=== PATIENT | male | born 1940 | race Caucasian/White ===

== ENCOUNTER 2017-01-20 14:25 | Emergency (ER) | payer OTHER ==
[~2017-01-20] VITALS: Ht 170.2 cm; Wt 74.0 kg
[~2017-01-20 14:25] MED LIST: ASPI81TA82 PO; ATOR40TA PO; B-COTAB41 PO; CO Q100C9 PO; DYAZ37.52 PO; GLUCTAB6; METO25 PO; OMEP20TA39 PO; OXYC1SOL5 PO; POTA10TA48 PO
[2017-01-20 14:43] VITALS: BP 135/91; PULSE 136; RESP 18; TEMP 98.7; O2SAT 97
[2017-01-20] MEDS ORDERED: ATOR40TA16 PO (15:34)
[2017-01-20] MEDS ORDERED: ASPI1TAB69 PO (15:34)
[2017-01-20] MEDS ORDERED: DYAZ37.5 PO (15:34)
[2017-01-20] MEDS ORDERED: CO Q100C7 PO (15:34)
[2017-01-20] MEDS ORDERED: POTA10CA PO (15:34)
[2017-01-20] MEDS ORDERED: OMEP40CA2 PO (15:34)
[2017-01-20] MEDS ORDERED: METO25TA3 PO (15:34)
[2017-01-20] MEDS ORDERED: VITA1000 PO (15:34)
[2017-01-20] MEDS ORDERED: GLUC1CAP16 PO (15:34)
[2017-01-20] MEDS ORDERED: SODIUM CHLORIDE 0.9% FLUSH 5 ML FLUSH IVF PRN (15:45)
--- NOTE | 2017-01-20 15:50 | PD ---
HPI Chief Complaint: GI Complaint Time Seen by Provider: 15:37 Travel History International Travel<30 days: No Contact w/Intl Traveler<30days: No Traveled to known affect area: No History of Present Illness HPI This patient complains of abdominal pain. Location is left lower quadrant. Duration 3 days. Severity is moderate. He had a bowel movement today. No diarrhea or vomiting or fever. He arrives with tachycardia 130 but says he has a history of fast heart rate and takes metoprolol because of his fast heart rate. He denies history of cardiac problems beyond that. No alleviating factors. PFSH Past Medical History Cancer: Yes (SKIN) Cardiovascular Problems: No High Cholesterol: Yes Diabetes: No Diminished Hearing: No Endocrine: No Genitourinary: No Hepatitis: No Hiatal Hernia: No Hypertension: Yes Immune Disorder: No Medical other: Yes (GERD) Musculoskeletal: Yes (OA) Neurologic: No Psychiatric: No Reproductive: No Respiratory: No Thyroid Disease: No Influenza Vaccination: Yes ?: Not Past Surgical History AICD: No Genitourinary Surgery: Yes (BLADDER BIOPSY) Joint Replacement: No Oral Surgery: Yes (T&A) Pacemaker: No Other Surgery: Yes Social History Alcohol Use: Yes (COUPLE GLASSES OF WINE PER DAY) Tobacco Use: Yes (12 CIG. PER DAY) Substance Use: No Allergies-Medications (Allergen,Severity, Reaction): Coded Allergies: Penicillin (Verified Allergy, Mild, 01/20/17) Reported Meds & Prescriptions Reported Meds & Active Scripts Active Reported Glucosamine Chondroitin (Xwfnxsrueor-Cfdcxcvdcsz-Lgr C-) 1 Cap Cap 1 Cap PO DAILY Potassium Chloride ER (Potassium Chloride) 10 Meq Cap 10 Meq PO DAILY Dyazide (Triamterene-Hydrochlorothiazide) 37.5-25 Mg Cap 1 Cap PO DAILY Omeprazole 40 Mg Cap 40 Mg PO DAILY Co Q10 (Coenzyme Q10 (Ubidecarenone)) 100 Mg Cap 100 Mg PO DAILY Metoprolol Tartrate 25 Mg Tab 12.5 Mg PO BID Vitamin D-1000 (Cholecalciferol) 1,000 Unit Tab 2,000 Units PO DAILY Atorvastatin (Atorvastatin Calcium) 40 Mg Tab 40 Mg PO HS Aspirin 81 Mg Tabdr 81 Mg PO DAILY Review of Systems General / Constitutional: No: Fever Eyes: No: Visual changes HENT: No: Headaches Cardiovascular: Positive: Tachycardia, No: Chest Pain or Discomfort Respiratory: No: Shortness of Breath Gastrointestinal: Positive: Abdominal Pain Genitourinary: No: Dysuria Musculoskeletal: No: Pain Skin: No Rash Neurologic: No: Weakness Psychiatric: No: Depression Endocrine: No: Polydipsia Hematologic/Lymphatic: No: Easy Bruising Physical Exam Narrative GENERAL: Well-nourished, well-developed patient in no apparent distress. SKIN: Warm and dry. HEAD: Atraumatic. Normocephalic. EYES: Pupils equal and round. No scleral icterus. No injection or drainage. ENT: No nasal bleeding or discharge. Mucous membranes pink and moist. NECK: Trachea midline. No JVD. CARDIOVASCULAR: Regular rate and rhythm. No murmur appreciated. Heart rate 130 RESPIRATORY: No accessory muscle use. Clear to auscultation. Breath sounds equal bilaterally. GASTROINTESTINAL: Abdomen soft, some left lower quadrant tenderness without rebound or guarding, nondistended. Hepatic and splenic margins not palpable. MUSCULOSKELETAL: No obvious deformities. No clubbing. No cyanosis. No edema. NEUROLOGICAL: Awake and alert. No obvious cranial nerve deficits. Motor grossly within normal limits. Normal speech. PSYCHIATRIC: Appropriate mood and affect; insight and judgment normal. Data Data Last Documented VS Vital Signs Date Time Temp Pulse Resp B/P Pulse Ox O2 Delivery O2 Flow Rate FiO2 01/20/17 14:43 98.7 136 18 135/91 97 Orders Basic Metabolic Panel (Bmp) (01/20/17 15:43) Complete Blood Count With Diff (01/20/17 15:43) Urinalysis - C+S If Indicated (01/20/17 15:43) Ct Abd/Pel W Iv Contrast(Rout) (01/20/17 15:43) Iv Access Insert/Monitor (01/20/17 15:43) Ecg Monitoring (01/20/17 15:43) Oximetry (01/20/17 15:43) NPO (01/20/17 15:43) Sodium Chloride 0.9% Flush (Ns Flush) (01/20/17 15:45) Electrocardiogram (01/20/17 15:43) Prothrombin Time / Inr (Pt) (01/20/17 15:45) Act Partial Throm Time (Ptt) (01/20/17 15:45) Labs Laboratory Tests Test 01/20/17 01/20/17 15:54 15:56 White Blood Count 13.4 TH/MM3 Red Blood Count 5.45 MIL/MM3 Hemoglobin 17.1 GM/DL Hematocrit 49.7 % Mean Corpuscular Volume 91.0 FL Mean Corpuscular Hemoglobin 31.3 PG Mean Corpuscular Hemoglobin 34.4 % Concent Red Cell Distribution Width 12.2 % Platelet Count 262 TH/MM3 Mean Platelet Volume 7.8 FL Neutrophils (%) (Auto) 81.4 % Lymphocytes (%) (Auto) 8.5 % Monocytes (%) (Auto) 6.1 % Eosinophils (%) (Auto) 0.1 % Basophils (%) (Auto) 3.9 % Neutrophils # (Auto) 11.0 TH/MM3 Lymphocytes # (Auto) 1.1 TH/MM3 Monocytes # (Auto) 0.8 TH/MM3 Eosinophils # (Auto) 0.0 TH/MM3 Basophils # (Auto) 0.5 TH/MM3 CBC Comment AUTO DIFF Differential Total Cells 100 Counted Neutrophils % (Manual) 79 % Band Neutrophils % 11 % Lymphocytes % 5 % Monocytes % 5 % Neutrophils # (Manual) 12.1 TH/MM3 Differential Comment FINAL DIFF MANUAL Platelet Estimate NORMAL Platelet Morphology Comment NORMAL Red Cell Morphology Comment NORMAL Prothrombin Time 10.7 SEC Prothromb Time International 1.0 RATIO Ratio Activated Partial 26.4 SEC Thromboplast Time Sodium Level 139 MEQ/L Potassium Level 3.2 MEQ/L Chloride Level 103 MEQ/L Carbon Dioxide Level 24.3 MEQ/L Anion Gap 12 MEQ/L Blood Urea Nitrogen 16 MG/DL Creatinine 1.10 MG/DL Estimat Glomerular Filtration 65 ML/MIN Rate Random Glucose 164 MG/DL Calcium Level 9.4 MG/DL Urine Collection Type CLEAN CATCH Urine Color DANGELO Urine Turbidity SLIGHT Urine pH 5.5 Urine Specific Carman 1.029 Urine Protein 100 mg/dL Urine Glucose (UA) NEG mg/dL Urine Ketones TRACE mg/dL Urine Occult Blood MOD Urine Nitrite NEG Urine Bilirubin NEG Urine Leukocyte Esterase NEG Urine RBC 20-24 /hpf Urine WBC 0-2 /hpf Urine Squamous Epithelial 6-8 /hpf Cells Urine Transitional Epithelial 0-5 /hpf Cells Urine Amorphous Sediment MOD Urine Hyaline Casts 6-9 /lpf Microscopic Urinalysis Comment CULT NOT INDICATED Urine Collection Time 1556 MDM Medical Decision Making Medical Screen Exam Complete: Yes Emergency Medical Condition: Yes Medical Record Reviewed: Yes Differential Diagnosis Diverticulitis, A. fib with RVR, cardiac arrhythmia Narrative Course I have reviewed the patient's electronic medical record. Has not been here for abdominal pain before and no abdominal imaging on file. He was here August 2016 for right shoulder problems IV placed CBC shows minimal leukocytosis of 13,000 Metabolic profile shows minor hypokalemia 3.2 which is replaced orally Coagulation studies are normal I reviewed his EKG shows sinus tachycardia she apparently is his baseline per his report. He says he is always tachycardic. Extended cardiac monitoring shows sinus tachycardia without ectopy CT of abdomen and pelvis shows some colitis without perforation or abscess Patient this point is minimally symptomatic and stable for outpatient follow- up. Has benign abdominal exam I don't think he has C. difficile, he has no diarrhea. I prescribed him some antibiotics as well as medicine for pain and nausea and a single replacement of potassium Diagnosis Primary Impression: Colitis presumed infectious Additional Impression: Hypokalemia Additional Instructions: The patient was advised to follow up with their physician and return if they worsen. The patient was warned about potential sedation for the medications they will receive on prescription. Med/Other Pt SpecificInfo: Prescription(s) given Scripts Tramadol 50 Mg Tab50 Mg PO Q6H PRN (PAIN) #20 TAB Ref 0 Prov:Demetri Pineda MD 01/20/17 Ondansetron (Zofran)4 Mg Tab4 Mg PO Q6HR PRN (NAUSEA OR VOMITING) #12 TAB Ref 0 Prov:Demetri Pineda MD 01/20/17 Ciprofloxacin (Cipro)500 Mg Scq139 Mg PO BID #14 TAB Ref 0 Prov:Demetri Pineda MD 01/20/17 Metronidazole (Flagyl)500 Mg Uhp803 Mg PO QID #28 TAB Ref 0 Prov:Demetri Pineda MD 01/20/17 Disposition: 01 DISCHARGE HOME Condition: Stable Demetri Pineda MD Jan 20, 2017 15:50
[2017-01-20 16:06] LABS: GLUCOSE,URINE NEG (NEG); KETONE, URINE TRACE mg/dL (NEG); NITRITE,URINE NEG (NEG); PH, URINE 5.5 (5.0-8.5)
[2017-01-20 16:08] LABS: BASOPHIL # 0.5 TH/MM3 (0-0.2); BASOPHIL % 3.9 % (0.0-2.0); EOSINOPHIL % 0.1 % (0.0-4.0); HEMATOCRIT 49.7 % (39.0-51.0); HEMO FLAGS AUTO DIFF; LYMPH % 8.5 % (9.0-44.0); LYMPHOCYTE # 1.1 TH/MM3 (1.0-4.8); MEAN CORPUSCULAR HEMOGLOBIN 31.3 PG (27.0-34.0); MEAN CORPUSCULAR HGB CONC 34.4 % (32.0-36.0); MONO % 6.1 % (0.0-8.0); NEUT % 81.4 % (16.0-70.0); PLATELET COUNT 262 TH/MM3 (150-450); RED BLOOD COUNT 5.45 MIL/MM3 (4.50-5.90); RED CELL DISTRIBUTION WIDTH 12.2 % (11.6-17.2); WHITE BLOOD COUNT 13.4 TH/MM3 (4.0-11.0)
[2017-01-20 16:12] LABS: BLOOD, URINE MOD (NEG)
[2017-01-20 16:13] LABS: METHOD OF COLLECTION CLEAN CATCH; URINE COLOR AMBER (YELLW/STRAW)
[2017-01-20 16:14] LABS: POTASSIUM 3.2 MEQ/L (3.5-5.1)
[2017-01-20 16:15] LABS: COMMENT2 (UR) MUCOUS PRESENT; WBC, URINE 0-2 /hpf (0-5)
[2017-01-20 16:16] LABS: TRANSITIONAL EPI CELLS, URINE 0-5 /hpf
[2017-01-20 16:17] LABS: BICARBONATE 24.3 MEQ/L (21.0-32.0)
[2017-01-20 16:17] LABS: COMMENT (UR) CULT NOT INDICATED; CULTURE IF INDICATED CULT NOT INDICATED
[2017-01-20 16:20] LABS: APTT (PATIENT) 26.4 SEC (24.3-30.1); PROTHROMBIN TIME - PATIENT 10.7 SEC (9.8-11.6)
[2017-01-20 16:22] LABS: BANDS 11 % (0-6); NEUTROPHIL # MANUAL DIFF 12.1 TH/MM3 (1.8-7.7); POLYS (SEG NEUTROPHILS) 79 % (16-70); WBC DIFF SAMPLE 100
[2017-01-20 16:23] LABS: PLATELET ESTIMATE SMEAR NORMAL (NORMAL); PLATELET MORPHOLOGY NORMAL (NORMAL); SCAN/DIFF FINAL DIFF MANUAL
[2017-01-20] MEDS ORDERED: IOHEXOL 350 MG/ML 10 ML VIAL (for RAD DIAG) IV ONE (16:37)
--- NOTE | 2017-01-20 17:12 | RADHPO ---
EXAM DATE/TIME: 01/20/2017 16:37 [facility] COMPARISON: No previous studies available for comparison. INDICATIONS : Left lower quadrant pain. IV CONTRAST: 94 cc Omnipaque 350 (iohexol) IV ORAL CONTRAST: No oral contrast ingested. RADIATION DOSE: 10.02 CTDIvol (mGy) MEDICAL HISTORY : Hypertension. SURGICAL HISTORY : None. ENCOUNTER: Initial ACUITY: 3 days PAIN SCALE: 4/10 LOCATION: Left lower quadrant TECHNIQUE: Volumetric scanning of the abdomen and pelvis was performed. Using automated exposure control and ad justment of the mA and/or kV according to patient size, radiation dose was kept as low as reasonably achievable to obtain optimal diagnostic quality images. FINDINGS: LOWER LUNGS: The visualized lower lungs are clear. LIVER: Homogeneous density without lesion. There is no dilation of the biliary tree. No calcified gallston es. SPLEEN: Normal size without lesion. PANCREAS: Within normal limits. KIDNEYS: Normal in size and shape. There is no mass, stone or hydronephrosis. ADRENAL GLANDS: Within normal limits. VASCULAR: There is no aortic aneurysm. BOWEL/MESENTERY: Diffuse wall thickening of the descending and sigmoid colon. Fluid filled large bowel. Scattered dive rticulosis ABDOMINAL WALL: Within normal limits. RETROPERITONEUM: There is no lymphadenopathy. BLADDER: No wall thickening or mass. REPRODUCTIVE: Within normal limits. Mild enlarged prostate. INGUINAL: There is no lymphadenopathy or hernia. MUSCULOSKELETAL: Within normal limits for patient age. CONCLUSION: 1. Diffuse colitis more notably involving the descending and sigmoid colon. No perforation or abscess . 2. Scattered diverticulosis. Curly Davila MD on January 20, 2017 at 17:09 Board Certified Radiologist. This report was verified electronically.
[2017-01-20] MEDS ORDERED: ZOFR4TAB PO (17:31)
[2017-01-20] MEDS ORDERED: CIPR-9 PO (17:31)
[2017-01-20] MEDS ORDERED: METR-1 PO (17:31)
[2017-01-20] MEDS ORDERED: TRAM50TA PO (17:31)
[2017-01-20] MEDS ORDERED: EFFE25TA4 PO (17:34)
[2017-01-20 17:37] VITALS: BP 128/66
[2017-01-20 17:49] VITALS: O2SAT 97
--- NOTE | 2017-01-20 22:35 | EKG ---
Date Performed: 01/20/2017 Time Performed: 16:07:10 PTAGE: 76 years EKG: Sinus tachycardia Borderline ECG NO PREVIOUS TRACING DOCTOR: Shin Wallace Interpretating Date/Time 01/20/2017 22:35:12
== END 2017-01-20 17:49 | disposition home or self-care (01) ==
LOC: PHED 14:25
DX: K52.9 Noninfective gastroenteritis and colitis, unspecified (principal); E87.6 Hypokalemia; R00.0 Tachycardia, unspecified; I10 Essential (primary) hypertension; F17.210 Nicotine dependence, cigarettes, uncomplicated
CPT/HCPCS: 74177; 80048; 81001; 85007; 85027; 85610; 85730; 93005; 99284; Q9967

== ENCOUNTER 2018-04-26 06:18 | Inpatient (IN) | payer OTHER, MEDICARE ==
[~2018-04-26] VITALS: Ht 167.6 cm; Wt 79.0 kg
[~2018-04-26 06:18] MED LIST changes: +ASPI1TAB57 PO; -ASPI81TA82 PO; -ATOR40TA PO; +ATOR40TA16 PO; -B-COTAB41 PO; -CO Q100C9 PO; +COQ-50CA2 PO; +DYAZ37.5 PO; -DYAZ37.52 PO; +GLUC1CAP16 PO; -GLUCTAB6; -METO25 PO; +METO25TA3 PO; -OMEP20TA39 PO; +OMEP40CA2 PO; -OXYC1SOL5 PO; +POTA10CA PO; -POTA10TA48 PO; +TRAZ100T10 PO; +VITA1000 PO
[2018-04-26] MEDS ORDERED: ACETAMINOPHEN 1000 MG/100 ML 100 ML IV ONE (06:44)
[2018-04-26] MEDS ORDERED: MIDAZOLAM HCL 2 MG/2 ML VIAL ONE (06:44)
[2018-04-26] MEDS ORDERED: fentaNYL CITRATE 250 MCG/5 ML AMP ONE (06:44)
[2018-04-26] MEDS ORDERED: ALVIMOPAN 12 MG CAPSULE - On Call PO SCH (06:45)
[2018-04-26] MEDS ORDERED: METOPROLOL TARTRATE 25 MG TAB PO PRN (06:45)
[2018-04-26] MEDS ORDERED: POVIDONE IODINE 5% (ANTISEPSIS KIT) 4 APPLICATIONS EACH NARE PRN (06:45)
[2018-04-26] MEDS ORDERED: metroNIDAZOLE 500 MG INJ 100 ML IV SCH (06:45)
[2018-04-26] MEDS ORDERED: VANCOMYCIN 1 GM/200 ML PREMIX ON-CALL IV SCH (06:45)
[2018-04-26] MEDS ORDERED: CHLORHEXIDINE GLUCONATE 2 % 1 PACK (2 CLOTHS) TOPICAL PRN (06:45)
[2018-04-26] MEDS ORDERED: SODIUM CHLORID 0.9% 500 ML IV PRN (06:45)
[2018-04-26] MEDS: LACTATED RINGER'S 1000 ML IV PRN ×2 (07:00→08:40)
[2018-04-26 07:28] LABS: AUTOMATED NEUTROPHIL # 8.1 TH/MM3 (1.8-7.7); BASOPHIL % 0.3 % (0.0-2.0); EOSINOPHIL % 0.2 % (0.0-4.0); HEMATOCRIT 45.2 % (39.0-51.0); HEMOGLOBIN 16.1 GM/DL (13.0-17.0); LYMPH % 10.3 % (9.0-44.0); LYMPHOCYTE # 1.1 TH/MM3 (1.0-4.8); MEAN CELL VOLUME 90.2 FL (80.0-100.0); MEAN CORPUSCULAR HEMOGLOBIN 32.1 PG (27.0-34.0); MEAN CORPUSCULAR HGB CONC 35.6 % (32.0-36.0); MONO % 10.6 % (0.0-8.0); MONOCYTE # 1.1 TH/MM3 (0-0.9); NEUT % 78.6 % (16.0-70.0); PLATELET COUNT 248 TH/MM3 (150-450); RED BLOOD COUNT 5.02 MIL/MM3 (4.50-5.90); WHITE BLOOD COUNT 10.3 TH/MM3 (4.0-11.0)
[2018-04-26 09:13] LABS: CALCIUM 9.3 MG/DL (8.5-10.1); CREATININE 1.08 MG/DL (0.60-1.30)
[2018-04-26 09:14] LABS: BICARBONATE 21.3 MEQ/L (21.0-32.0)
[2018-04-26] MEDS ORDERED: GLUCAGON 1 MG/ML VIAL ONE (09:25)
[2018-04-26] MEDS ORDERED: BUPRENORPHINE HCL 0.3 MG/1 ML VIAL ONE (09:34)
[2018-04-26] MEDS ORDERED: BUPIVACAINE LIPOSOME PF 1.3% 20 ML VIAL ONE (09:37)
[2018-04-26] MEDS ORDERED: BUPIVACAINE HCL PF 0.5% 30 ML VIAL INFIL ONE (10:38)
[2018-04-26] MEDS ORDERED: GLYCOPYRROLATE 1 MG/5 ML SYRINGE IV PUSH ONE (11:51)
[2018-04-26] MEDS ORDERED: ONDANSETRON HCL 4 MG/2 ML VIAL IV PUSH ONE (11:51)
[2018-04-26] MEDS ORDERED: ESMOLOL HCL 100 MG/10 ML VIAL IV ONE (11:51)
[2018-04-26] MEDS ORDERED: PROPOFOL 200 MG/20 ML AMP IV ONE (11:51)
[2018-04-26] MEDS ORDERED: VECURONIUM BROMIDE 20 MG VIAL IV ONE (11:51)
[2018-04-26] MEDS ORDERED: NEOSTIGMINE 5 MG/5 ML SYRINGE IV PUSH ONE (11:51)
[2018-04-26] MEDS ORDERED: LIDOCAINE HCL 1% PF 5 ML SYRINGE OTHER ONE (11:51)
[2018-04-26] MEDS ORDERED: DEXAMETHASONE SOD PHOS 4 MG/ML VIAL IV ONE (11:51)
[2018-04-26] MEDS ORDERED: ROCURONIUM INJ 50 MG/5 ML SYRINGE IV PUSH ONE (11:51)
[2018-04-26] MEDS: D5-NS + KCL 20 MEQ INJ 1,000 ML IV SCH ×2 (13:30→22:00)
--- NOTE | 2018-04-26 13:39 | HHI.PR ---
cc: Kenton Meidna MD Immediate Post Op Note Procedure Date: Apr 26, 2018 Pre Op Diagnosis: Previously perforated diverticulitis Post Op Diagnosis: Same Surgeon: Kenton Medina Analytical Engineer(s): Rolan Pérez MD Procedure: Laparoscopic assisted sigmoid colon resection Takedown of the splenic flexure of the colon Rigid Proctoscopy Complications: None Specimen(s) removed: Sigmoid colon to pathology Estimated blood loss: 250 ml Anesthesia: General Drains: None IVF (2400 ml) Patient to: PACU Patient Condition: Good Date/Time of Procedure: SEE SURGICAL CARE RECORD Kenton Medina MD Apr 26, 2018 13:39
[2018-04-26] MEDS ORDERED: ENOXAPARIN SODIUM 40 MG/0.4 ML SYRINGE SQ SCH (13:40)
[2018-04-26] MEDS ORDERED: ACETAMINOPHEN/HYDROcodone 325 MG/5 MG TAB PO PRN ×2 (13:45)
[2018-04-26] MEDS ORDERED: NALOXONE HCL 0.4 MG/ML AMP IV PUSH PRN (13:45)
[2018-04-26] MEDS ORDERED: diphenhydrAMINE HCL 50 MG/ML VIAL IV PUSH PRN (13:45)
[2018-04-26] MEDS ORDERED: Post-op Orders (for Pharmacy) XX ONE (13:45)
[2018-04-26] MEDS ORDERED: DO NOT ADM ANY ANTICOAGULANT DRUGS PRN (13:52)
[2018-04-26] MEDS: PCA - TOTAL MG MORPHINE DELIVERED PER SHIFT SCH ×2 (14:00→22:00)
[2018-04-26] MEDS ORDERED: *morphine SULFATE 4 MG/ML PERIprocedure ONLY ONE ×2 (14:00→14:10)
[2018-04-26] MEDS ORDERED: MORPHINE SULFATE 30 MG/30 ML PCA ONE (14:11)
[2018-04-26] MEDS: MORPHINE SULFATE 30 MG/30 ML PCA IV SCH (14:19)
[2018-04-26 14:27] LABS: HEMATOCRIT 39.2 % (39.0-51.0); HEMOGLOBIN 14.2 GM/DL (13.0-17.0)
--- NOTE | 2018-04-26 14:45 | MP ---
cc: Rolan Pérez MD DATE OF OPERATION: 04/26/2018 DATE OF PROCEDURE: 04/26/2018 PREOPERATIVE DIAGNOSIS: Diverticulitis. POSTOPERATIVE DIAGNOSIS: Diverticulitis. PROCEDURE PERFORMED: Rigid proctoscopy. ATTENDING SURGEON: Rolan Pérez MD PEST CONTROL SERVICE REPRESENTATIVE: None. BLOOD LOSS: Zero. COMPLICATIONS: None. FINDINGS: Good prep with normal rectum and distal sigmoid and anastomosis after colorectal anastomosis after sigmoid resection. INDICATIONS FOR PROCEDURE: The patient is a 77-year-old male with recurrent diverticulitis, undergoing laparoscopic-assisted sigmoid resection by Dr. Medina. I was asked to assist Dr. Medina with the operation, including perform a rigid proctoscopy prior to the colorectal anastomosis as well as after. Risks, benefits and alternatives were discussed with the patient about the procedure by Dr. Medina prior to the procedure. DESCRIPTION OF PROCEDURE: The patient had undergone sigmoid resection by Dr. Medina. I was asked to perform a proctoscopy prior to the anastomosis. A rigid proctoscopy was performed. I did a digital rectal exam first to dilate the anus. We placed a rigid proctoscope into the rectum without difficulty. We insufflated the rectum and with the rigid proctoscope were able to visualize the complete rectum all the way up to the staple line at the rectosigmoid junction. There was no evidence of any abnormality. There was a good prep. At this point in time, we did perform the colorectal anastomosis using a 29 mm EEA stapling device without difficulty and without complication. The stapling device was passed by myself transrectally and 2 good donuts were noted on the exam of the instrument after the firing of the staple. A rigid proctoscopy was then performed again a second time and this was again done in likewise fashion and the anastomosis was visualized to be intact without leak and with no evidence of any bleeding or stricture. At this point in time, the air was expressed from the rectum through decompressing the scope and it was slowly withdrawn. The rigid proctoscopy procedure was complete. Please see Dr. Medina's separate dictated note for the sigmoid resection. The patient tolerated the rigid proctoscopy well without complications. MD VARGAS Rodriguez/AMAIRANI , 02:06 PM , 02:44 PM
--- NOTE | 2018-04-26 15:01 | EKG ---
Date Performed: 04/26/2018 Time Performed: 06:53:36 PTAGE: 77 years EKG: Sinus rhythm NORMAL ECG Compared to PREVIOUS TRACING , sinus rate is slower. PREVIOUS TRACIN01/20/2017 16.07 DOCTOR: Donald Gomez Interpretating Date/Time 04/26/2018 14:56:22
[2018-04-26 15:25] VITALS: PULSE 67; RESP 19
[2018-04-26 16:00] VITALS: BP 124/58; PULSE 67; RESP 19; TEMP 98.1; O2SAT 98
[2018-04-26 18:00] VITALS: PULSE 63
[2018-04-26] MEDS: metroNIDAZOLE 500 MG INJ 100 ML IV SCH (18:33)
[2018-04-26 20:00] VITALS: BP 109/60; PULSE 68; PULSE 71; RESP 22; TEMP 98.5; O2SAT 98
[2018-04-26 22:00] VITALS: PULSE 72; RESP 13
[2018-04-27] VITALS (12 sets, daily range): BP systolic 99–138; BP diastolic 54–63; PULSE 66–98; RESP 8–28; TEMP 98.2–98.5; O2SAT 95–98
[2018-04-27] MEDS: MORPHINE SULFATE 30 MG/30 ML PCA IV SCH ×3 (01:14→16:07)
[2018-04-27] MEDS: metroNIDAZOLE 500 MG INJ 100 ML IV SCH ×2 (01:15→09:24)
[2018-04-27] MEDS: D5-NS + KCL 20 MEQ INJ 1,000 ML IV SCH ×2 (05:31→12:53)
[2018-04-27 05:34] LABS: AUTOMATED NEUTROPHIL # 7.4 TH/MM3 (1.8-7.7); BASOPHIL % 0.2 % (0.0-2.0); EOSINOPHIL % 0.1 % (0.0-4.0); HEMATOCRIT 37.8 % (39.0-51.0); HEMOGLOBIN 13.1 GM/DL (13.0-17.0); LYMPH % 10.8 % (9.0-44.0); MEAN CELL VOLUME 91.4 FL (80.0-100.0); MEAN CORPUSCULAR HEMOGLOBIN 31.6 PG (27.0-34.0); MEAN CORPUSCULAR HGB CONC 34.6 % (32.0-36.0); MEAN PLATELET VOLUME 7.6 FL (7.0-11.0); MONOCYTE # 1.1 TH/MM3 (0-0.9); NEUT % 76.9 % (16.0-70.0); PLATELET COUNT 245 TH/MM3 (150-450); RED BLOOD COUNT 4.14 MIL/MM3 (4.50-5.90); WHITE BLOOD COUNT 9.6 TH/MM3 (4.0-11.0)
[2018-04-27 05:54] LABS: BICARBONATE 27.8 MEQ/L (21.0-32.0); CALCIUM 7.9 MG/DL (8.5-10.1); CREATININE 0.76 MG/DL (0.60-1.30)
[2018-04-27] MEDS: PCA - TOTAL MG MORPHINE DELIVERED PER SHIFT SCH ×3 (06:00→21:33)
[2018-04-27] MEDS: ALVIMOPAN 12 MG CAPSULE - Post-op dosing PO SCH ×2 (08:04→21:32)
[2018-04-27] MEDS: ENOXAPARIN SODIUM 40 MG/0.4 ML SYRINGE SQ SCH (12:53)
--- NOTE | 2018-04-27 14:52 | HHI.PR ---
Subjective Subjective Notes Minimal pain Uneventful night Wants more to eat No flatus or BM yet Objective Vitals/I&O Vital Signs Date Time Temp Pulse Resp B/P (MAP) Pulse Ox O2 Delivery O2 Flow Rate FiO2 04/27/18 14:00 25 04/27/18 14:00 90 04/27/18 12:00 98.2 138/60 (86) 95 04/27/18 07:00 Nasal Cannula 2.00 Labs Laboratory Tests Test 04/27/18 04:46 White Blood Count 9.6 Red Blood Count 4.14 Hemoglobin 13.1 Hematocrit 37.8 Mean Corpuscular Volume 91.4 Mean Corpuscular Hemoglobin 31.6 Mean Corpuscular Hemoglobin Concent 34.6 Red Cell Distribution Width 14.0 Platelet Count 245 Mean Platelet Volume 7.6 Neutrophils (%) (Auto) 76.9 Lymphocytes (%) (Auto) 10.8 Monocytes (%) (Auto) 12.0 Eosinophils (%) (Auto) 0.1 Basophils (%) (Auto) 0.2 Neutrophils # (Auto) 7.4 Lymphocytes # (Auto) 1.0 Monocytes # (Auto) 1.1 Eosinophils # (Auto) 0.0 Basophils # (Auto) 0.0 CBC Comment DIFF FINAL Differential Comment Blood Urea Nitrogen 10 Creatinine 0.76 Random Glucose 146 Calcium Level 7.9 Sodium Level 141 Potassium Level 3.2 Chloride Level 106 Carbon Dioxide Level 27.8 Anion Gap 7 Estimat Glomerular Filtration Rate 100 Date/Time Source Procedure Growth Status 04/26/18 11:30 Abscess Abdomen Acid Fast Stain Pending Received 04/26/18 11:30 Abscess Abdomen Mycobacterial Culture Pending Received Abdomen: Non-distended, Post-op tenderness Narrative Exam MARV dressing with a few spots of old drainage Binder in place A/P Problem List: (1) Hypokalemia ICD Codes: E87.6 - Hypokalemia Status: Acute (2) diverticulitis with previous perforation Assessment and Plan POD #1 lap assisted sigmoid colon resection Doing well Plan: Advance to full liquid diet Replace K+ Transfer to floor Start PO pain meds Wean CHILD THERAPIST in next day or so Kenton Medina MD Apr 27, 2018 14:52
[2018-04-27] MEDS ORDERED: ACETAMINOPHEN/HYDROcodone 325 MG/7.5 MG TAB PO PRN (15:00)
[2018-04-27] MEDS: POTASSIUM CHLOR 20 MEQ PREMIX 100 ML IV SCH ×2 (15:05→17:00)
[2018-04-27] MEDS: PANTOPRAZOLE SOD 40 MG DELAYED RELEASE TAB PO SCH (18:33)
[2018-04-27] MEDS ORDERED: PILL SPLITTER OTHER PRN (18:45)
--- NOTE | 2018-04-27 20:18 | MP ---
cc: Kenton Medina MD,Kenton Pérez,Rolan Zaman MD DATE OF OPERATION: 04/26/2018 PREOPERATIVE DIAGNOSIS: Previous severe diverticulitis with contained perforation. POSTOPERATIVE DIAGNOSIS: Previous severe diverticulitis with contained perforation ANESTHESIA: General endotracheal. ESTIMATED BLOOD LOSS: 250 mL FLUIDS: 2400 mL crystalloid SURGEON: Kenton Medina MD SCANNING MANAGER: Rolan Pérez MD. PROCEDURE PERFORMED: 1. Laparoscopic-assisted sigmoid colon resection. 2. Takedown of the splenic flexure of the colon. 3. Rigid proctoscopy. Please see Dr. Pérez's dictation for the proctoscopic portion of the exam. PROCEDURE IN DETAIL: The patient was taken to the operating room and placed on the operating table in the supine position. After adequate level of general endotracheal anesthesia was achieved, the patient's legs were placed in yellow fin stirrups and a Pedraza catheter placed into the bladder. The abdomen was shaved, prepped and draped. A timeout was taken confirming the correct patient, site, and procedure to be performed. A 5-mm trocar was utilized and a small skin incision was made just above the umbilicus. Using the laparoscope and direct visualization, the peritoneal cavity was entered uneventfully. The abdomen was insufflated. Two additional 5-mm trocars were then placed with the first in the infraumbilical midline and the second superiorly just off the midline to the left. Both entered the abdominal cavity under direct vision uneventfully. At this point, the Harmonic scalpel was used to mobilize the white line of Toldt and the descending colon. The sigmoid colon was seen to be firmly adherent to the anterior abdominal wall and initial efforts taken to mobilize this were unsuccessful as the adhesions were dense and firm. Thus, it was elected to proceed along the line of Toldt up to the splenic flexure and to mobilize the splenic flexure. The omentum was pulled superiorly and the splenic flexure was easily taken down with the Harmonic scalpel. Dissection was carried back to the mid transverse colon, allowing for good mobilization of the colon in preparation for resection of the sigmoid colon. At this point, with adequate mobilization, insufflation was discontinued and the trocars removed. An incision was made from the symphysis pubis up to just above the umbilicus utilizing 2 of the 3 trocar sites. The peritoneal cavity was entered uneventfully. The incision was opened further and the abdomen was explored. The patient was noted to have a firmly adherent sigmoid colon that was grossly inflamed in the left lower quadrant. This was mobilized off the anterior abdominal wall and purulent material was encountered. This was cultured and sent for Gram stain and culture and sensitivity. When this had been completed, the anterior adhesions were taken down with a combination of blunt dissection and electrocautery. When this had been mobilized up, the colon was then further mobilized medially and the left ureter was identified. This was deep to the entire area of dissection and was kept free from all of the operative field. This was packed away and no dissection was carried out near the ureter. The colon was then further dissected distally and a point chosen distal to all of the inflammatory process. A contour stapler was brought in and, after creating a mesenteric defect, the contour stapler was fired. The colon was divided and then the colon was brought up in a retrograde fashion. The Harmonic scalpel was used to divide the mesentery except where a large sigmoidal vessel was noted. This was ligated with silk suture and divided. Further dissection up to the level of the descending colon was easy and the colon was then divided in approximately the mid descending colon with a COLIN type stapler. The specimen was marked with a silk suture and passed off the table. At this point, Dr. Pérez went below and performed rigid proctoscopy. Please see his dictation for this portion of the procedure. While he was preparing the lower rectal stump, undersigned open the staple line in the descending colon and utilized sizers. A 29 sizer fit into the colon easily and did not appear to cause any undue stretching. At this point, a pursestringer was utilized and a 29 EEA anvil was brought up and placed into the colon. The suture was cinched down, but did not appear to be providing an adequate pursestring to prevent leaks. This was taken out and a 2-0 Prolene was used in a baseball type stitch to create a new pursestring. This was cinched down around the anvil and appeared to be much more adequate. Excess colonic tissue was trimmed back. Dr. Pérez then advanced the 29 EEA stapler from the rectum up to the rectal stump. We landed the stapler just anterior to the staple line in the middle of the rectal stump. The spike was brought through the rectum and attached to the anvil. This was then cinched down and the stapler fired. Dr. Pérez removed the EEA stapler and a few anterior 3-0 silk buttressing sutures were placed where the nazario appeared to be somewhat exposed. Dr. Pérez confirmed that there were 2 full circular donuts obtained in the stapling device. At this point, Dr. Pérez reinserted the proctoscope and, while the undersigned occluded the descending colon, he insufflated the rectum. No bubbles were noted and a water and air tight seal was noted at the staple line. The distal colon and rectum were decompressed and undersigned then closed the mesenteric defect in the descending colon down to the anastomosis with 3-0 silk sutures. When this was completed, 1 liter of saline irrigation was utilized in the abdominal cavity. Gloves were changed and the fascia was closed with a running #1 PDS looped suture. The skin was closed with nazario and a MARV dressing was applied. The patient was extubated and taken back to the recovery room in stable condition. He tolerated the procedure well. Sponge, needle, and instrument counts were reported to be correct. MD BOBBY Luis/ , 07:47 PM , 08:17 PM
[2018-04-27] MEDS ORDERED: ATORVASTATIN 40 MG TAB PO SCH (21:00)
[2018-04-27] MEDS ORDERED: NON-FORMULARY DRUG (Trazodone 100 MG) PO SCH (21:00)
[2018-04-27] MEDS ORDERED: METOPROLOL TARTRATE 25 MG TAB PO SCH (21:00)
[2018-04-27] MEDS: METOPROLOL TARTRATE 25 MG TAB PO SCH (21:32)
[2018-04-27] MEDS: ATORVASTATIN 40 MG TAB PO SCH (21:32)
[2018-04-27] MEDS: traZODone HCL 100 MG TAB PO SCH (21:32)
[2018-04-28] VITALS (8 sets, daily range): BP systolic 112–154; BP diastolic 56–75; PULSE 81–93; RESP 17–18; TEMP 98–99.2; O2SAT 93–96
[2018-04-28] MEDS: MORPHINE SULFATE 30 MG/30 ML PCA IV SCH (00:26)
[2018-04-28] MEDS: PANTOPRAZOLE SOD 40 MG DELAYED RELEASE TAB PO SCH (05:15)
[2018-04-28] MEDS: PCA - TOTAL MG MORPHINE DELIVERED PER SHIFT SCH (05:16)
[2018-04-28] MEDS: D5-NS + KCL 20 MEQ INJ 1,000 ML IV SCH ×3 (05:16→20:38)
[2018-04-28] MEDS ORDERED: SODIUM CHLORID 0.9% 500 ML INJ 500 ML IV ONE (06:30)
[2018-04-28 06:34] LABS: BICARBONATE 27.2 MEQ/L (21.0-32.0); CALCIUM 8.2 MG/DL (8.5-10.1); CREATININE 0.69 MG/DL (0.60-1.30)
[2018-04-28] MEDS ORDERED: POTASSIUM CHLORIDE 10 MEQ CAP PO SCH (09:00)
[2018-04-28] MEDS: TRIAMTERENE/HCTZ 37.5 MG/25 MG TAB PO SCH (09:00)
[2018-04-28] MEDS ORDERED: NON-FORMULARY DRUG (Omeprazole 40 MG) PO SCH (09:00)
[2018-04-28] MEDS ORDERED: CHOLECALCIFEROL (VIT D3) 1000 UNIT TAB PO SCH (09:00)
[2018-04-28] MEDS ORDERED: ASPIRIN EC 81 MG TABEC PO SCH (09:00)
[2018-04-28] MEDS ORDERED: GLUCOSAMINE CHONDROITIN VIT C PO SCH (09:00)
[2018-04-28] MEDS ORDERED: TRIAMTERENE/HCTZ 37.5 MG/25 MG CAP PO SCH (09:00)
[2018-04-28] MEDS: POTASSIUM CHLORIDE 10 MEQ CONTROLLED RELEASE TAB PO SCH (09:16)
[2018-04-28] MEDS: ALVIMOPAN 12 MG CAPSULE - Post-op dosing PO SCH ×2 (09:16→20:38)
[2018-04-28] MEDS: ASPIRIN EC 81 MG TABEC PO SCH (09:17)
[2018-04-28] MEDS: CHOLECALCIFEROL (VIT D3) 1000 UNIT TAB PO SCH (09:17)
[2018-04-28] MEDS: METOPROLOL TARTRATE 25 MG TAB PO SCH ×2 (09:18→20:44)
[2018-04-28] MEDS: ACETAMINOPHEN/HYDROcodone 325 MG/7.5 MG TAB PO PRN ×4 (10:34→23:14)
--- NOTE | 2018-04-28 11:43 | HHI.PR ---
Subjective Subjective Notes no acute issues, tolerating fulls, no flatus no bm Objective Vitals/I&O Vital Signs Date Time Temp Pulse Resp B/P (MAP) Pulse Ox O2 Delivery O2 Flow Rate FiO2 04/28/18 09:04 2.00 04/28/18 08:00 98.5 81 18 112/56 (74) 94 04/27/18 21:30 Nasal Cannula Labs Laboratory Tests Test 04/28/18 04:07 Blood Urea Nitrogen 6 Creatinine 0.69 Random Glucose 109 Calcium Level 8.2 Sodium Level 145 Potassium Level 3.4 Chloride Level 110 Carbon Dioxide Level 27.2 Anion Gap 8 Estimat Glomerular Filtration Rate 112 Date/Time Source Procedure Growth Status 04/26/18 11:30 Abscess Abdomen Acid Fast Stain Pending Received 04/26/18 11:30 Abscess Abdomen Mycobacterial Culture Pending Received Lungs: Clear Abdomen: Other (isaac in place incisional tenderness) A/P Problem List: (1) Hypokalemia ICD Codes: E87.6 - Hypokalemia Status: Acute (2) diverticulitis with previous perforation Assessment and Plan POD #2 lap assisted sigmoid colon resection Doing well Plan: keep full liquid diet d/c intelligence operations, encourage po Start PO pain meds dvt ppx Christiano Boyd MD Apr 28, 2018 11:43
[2018-04-28] MEDS: ENOXAPARIN SODIUM 40 MG/0.4 ML SYRINGE SQ SCH (12:50)
[2018-04-28] MEDS ORDERED: MORPHINE SULFATE 4 MG/ML INJ IV PRN (14:15)
[2018-04-28] MEDS: ATORVASTATIN 40 MG TAB PO SCH (20:38)
[2018-04-28] MEDS: traZODone HCL 100 MG TAB PO SCH (20:38)
[2018-04-29] VITALS: BP 119/61; PULSE 91; RESP 18; TEMP 98.6; O2SAT 91
[2018-04-29] MEDS: PANTOPRAZOLE SOD 40 MG DELAYED RELEASE TAB PO SCH (04:45)
[2018-04-29] MEDS: D5-NS + KCL 20 MEQ INJ 1,000 ML IV SCH ×2 (04:45→11:38)
[2018-04-29] MEDS: ACETAMINOPHEN/HYDROcodone 325 MG/7.5 MG TAB PO PRN ×5 (04:45→22:35)
[2018-04-29 05:34] VITALS: PULSE 82; O2SAT 93
[2018-04-29 08:00] VITALS: BP 119/58; PULSE 83; RESP 17; TEMP 98.6; O2SAT 93
[2018-04-29] MEDS: POTASSIUM CHLORIDE 10 MEQ CONTROLLED RELEASE TAB PO SCH (08:27)
[2018-04-29] MEDS: ASPIRIN EC 81 MG TABEC PO SCH (08:28)
[2018-04-29] MEDS: CHOLECALCIFEROL (VIT D3) 1000 UNIT TAB PO SCH (08:28)
[2018-04-29] MEDS: ALVIMOPAN 12 MG CAPSULE - Post-op dosing PO SCH ×2 (08:28→20:27)
[2018-04-29] MEDS: TRIAMTERENE/HCTZ 37.5 MG/25 MG TAB PO SCH (08:28)
[2018-04-29] MEDS: METOPROLOL TARTRATE 25 MG TAB PO SCH ×2 (08:29→20:27)
[2018-04-29] MEDS: ENOXAPARIN SODIUM 40 MG/0.4 ML SYRINGE SQ SCH (11:35)
[2018-04-29 12:00] VITALS: BP 113/54; PULSE 80; RESP 17; TEMP 98.4; O2SAT 95
--- NOTE | 2018-04-29 14:34 | HHI.PR ---
Subjective Subjective Notes Resting in bed +BM No issues Objective Vitals/I&O Vital Signs Date Time Temp Pulse Resp B/P (MAP) Pulse Ox O2 Delivery O2 Flow Rate FiO2 04/29/18 12:00 98.4 80 17 113/54 (73) 95 04/29/18 08:28 Room Air 04/28/18 09:04 2.00 Labs Date/Time Source Procedure Growth Status 04/26/18 11:30 Abscess Abdomen Acid Fast Stain - Final NO ACID FAST BACILLI SEEN Resulted 04/26/18 11:30 Abscess Abdomen Mycobacterial Culture Pending Resulted Cardiovascular: Regular Lungs: Clear Abdomen: Other (MARV in place with good seal ) Extremities: Other (mild peripherally edema in BLE ) A/P Problem List: (1) Hypokalemia ICD Codes: E87.6 - Hypokalemia Status: Acute (2) diverticulitis with previous perforation Assessment and Plan 77 year old male POD3 lap assisted sigmoid colon resection -Advance to soft diet -DC IVF -[place] for Pain control -Lovenox -IS -Likely home tomorrow with MARV Attending Note - Dr. Medina Had 2 BM's; tolerating full liquids MARV dressing with old drainage Advance diet and heplock IV As above F/U my office later in week to remove nazario and MARV dressing The exam, history, and the medical decision-making described in the above note were completed with the assistance of the mid-level provider. I reviewed and agree with the findings presented. I attest that I had a [id number] encounter with the patient on the same day, and personally performed and documented my assessment and findings in the medical record. Sylvia Buckley/First Ubaldo ALVAREZ Apr 29, 2018 14:34 Kenton Medina MD Apr 29, 2018 18:49
[2018-04-29] MEDS ORDERED: ACETAMINOPHEN/HYDROcodone 325 MG/7.5 MG TAB PO PRN (14:45)
[2018-04-29 16:00] VITALS: BP 113/56; PULSE 87; RESP 17; TEMP 98.5; O2SAT 94
[2018-04-29 20:00] VITALS: BP 120/59; PULSE 85; RESP 18; TEMP 99.1; O2SAT 98
[2018-04-29] MEDS: traZODone HCL 100 MG TAB PO SCH (20:27)
[2018-04-29] MEDS: ATORVASTATIN 40 MG TAB PO SCH (20:27)
[2018-04-30 00:16] VITALS: BP 130/61; PULSE 92; RESP 18; TEMP 98.7; O2SAT 96
[2018-04-30] MEDS: ACETAMINOPHEN/HYDROcodone 325 MG/7.5 MG TAB PO PRN ×2 (03:09→06:56)
[2018-04-30] MEDS: PANTOPRAZOLE SOD 40 MG DELAYED RELEASE TAB PO SCH (06:56)
[2018-04-30 08:00] VITALS: BP 121/59; PULSE 84; RESP 17; TEMP 98.2; O2SAT 91
[2018-04-30] MEDS: CHOLECALCIFEROL (VIT D3) 1000 UNIT TAB PO SCH (08:32)
[2018-04-30] MEDS: TRIAMTERENE/HCTZ 37.5 MG/25 MG TAB PO SCH (08:33)
[2018-04-30] MEDS: METOPROLOL TARTRATE 25 MG TAB PO SCH (08:33)
[2018-04-30] MEDS: POTASSIUM CHLORIDE 10 MEQ CONTROLLED RELEASE TAB PO SCH (08:33)
[2018-04-30] MEDS: ALVIMOPAN 12 MG CAPSULE - Post-op dosing PO SCH (08:33)
[2018-04-30] MEDS: ASPIRIN EC 81 MG TABEC PO SCH (08:33)
--- NOTE | 2018-04-30 10:10 | HHI.DS ---
Discharge Summary Admission Date Apr 26, 2018 at 06:18 Admitting Diagnosis (1) Hypokalemia ICD Codes: E87.6 - Hypokalemia Status: Acute (2) diverticulitis with previous perforation CBC/BMP: 04/27/18 0446 04/28/18 0407 Significant Findings Laboratory Tests Test 04/28/18 04:07 Blood Urea Nitrogen 6 MG/DL (7-18) Random Glucose 109 MG/DL (74-106) Calcium Level 8.2 MG/DL (8.5-10.1) Potassium Level 3.4 MEQ/L (3.5-5.1) Chloride Level 110 MEQ/L (98-107) PE at Discharge MARV dressing with a few spots of old drainage Binder in place Pt Condition on Discharge: Good Discharge Disposition: Discharge Home Discharge Instructions DIET: Follow Instructions for: As Tolerated, No Restrictions Activities you can perform: See Additionl Instruction Other Activity Instructions: Okay to shower--- do not spray water directly on dressing; place battery pack in ZipLock bag and seal Wear abdominal binder at all times when not showering Avoid heavy pushing pulling or lifting Sylvia Buckley/First Ubaldo ALVAREZ Apr 30, 2018 10:10
[2018-04-30] MEDS ORDERED: HYDR-3580 PO (10:11)
== END 2018-04-30 11:52 | disposition home or self-care (01) | DRG 330 ==
LOC: HSDI 06:18 → N03A 15:02 → N07A 04-27 17:33
PROVIDERS: ADMIT Surgery Trauma Surgery; ATTEND Surgery Trauma Surgery
PROC: 0DJD8ZZ Inspection of Lower Intestinal Tract, Via Natural or Artificial Opening Endoscopic (ICD-10-PCS; 2018-04-26)
PROC: 0DBN0ZZ Excision of Sigmoid Colon, Open Approach (ICD-10-PCS; principal; 2018-04-26 09:55)
DX: K57.20 Diverticulitis of large intestine with perforation and abscess without bleeding (principal); E87.6 Hypokalemia
CPT/HCPCS: 80048; 85014; 85018; 85025; 86850; 86900; 86901; 87015; 87070; 87077; 87102; 87116; 87186; 87205; 87206; 88307; 93005; C9290; J0131; J0592; J1100; J1610; J1650; J2250; J2270; J2405; J2710; J3010; J3370; J3480; J7040; J7120